=== PATIENT | male | born 1990 | race African-American/Black ===

== ENCOUNTER 2016-04-15 15:40 | Inpatient (IN) | payer SELFPAY ==
[~2016-04-15] VITALS: Ht 190.5 cm; Wt 75.4 kg
[2016-04-15] MEDS: NICOTINE 21 MG/24 HR TRANSDERM SCH (09:00)
[2016-04-15] MEDS ORDERED: DIPHENHYDRAMINE 50 MG/ML VIAL ONE (18:33)
[2016-04-15] MEDS ORDERED: HALOPERIDOL 5 MG/ML VIAL ONE (18:34)
[2016-04-15] MEDS ORDERED: LORAZEPAM 2 MG/ML VIAL ONE (18:34)
[2016-04-15] MEDS ORDERED: HALOPERIDOL 5 MG/ML VIAL IM PRN (20:25)
[2016-04-15] MEDS ORDERED: DIPHENHYDRAMINE 50 MG CAP PO PRN (20:25)
[2016-04-15] MEDS ORDERED: LORAZEPAM 2 MG/ML VIAL IM PRN (20:25)
[2016-04-15] MEDS ORDERED: DIPHENHYDRAMINE 50 MG/ML VIAL IM PRN (20:25)
[2016-04-15] MEDS ORDERED: ACETAMINOPHEN 325 MG TAB PO PRN (20:25)
[2016-04-15] MEDS ORDERED: ALU/MAG/SIM 30 ML UDC PO PRN (20:25)
[2016-04-15] MEDS ORDERED: HALOPERIDOL 5 MG TAB PO PRN (20:25)
[2016-04-15] MEDS ORDERED: LORAZEPAM 2 MG TAB PO PRN (20:25)
[2016-04-15] MEDS ORDERED: MAG HYDROX 30 ML UDC PO PRN (20:25)
[2016-04-15 20:40] VITALS: BP_SYST 85; RESP 16
[2016-04-15] MEDS ORDERED: risperiDONE 2 MG TAB PO SCH (21:00)
[2016-04-15 23:39] VITALS: Ht 190.5 cm; Wt 75.4 kg
[2016-04-16] MEDS: MULTIVITS/MINERALS (THERAGRAN M) TAB PO SCH (09:00)
[2016-04-16] MEDS: risperiDONE 2 MG TAB PO SCH (10:00)
[2016-04-16 10:53] VITALS: BP_SYST 106; RESP 18; TEMP 98.1
[2016-04-16] MEDS: NICOTINE 21 MG/24 HR TRANSDERM SCH (18:23)
[2016-04-16 19:04] VITALS: BP_SYST 122; RESP 18; TEMP 98.3
[2016-04-16] MEDS: TRAZODONE 50 MG TAB PO PRN (22:03)
[2016-04-17 07:36] VITALS: BP_SYST 110; RESP 18; TEMP 97.8
[2016-04-17] MEDS: NICOTINE 21 MG/24 HR TRANSDERM SCH (09:00)
[2016-04-17] MEDS: risperiDONE 2 MG TAB PO SCH (09:31)
[2016-04-17] MEDS: MULTIVITS/MINERALS (THERAGRAN M) TAB PO SCH (09:32)
[2016-04-17 19:46] VITALS: BP_SYST 125; RESP 16; TEMP 97.8
[2016-04-17] MEDS: depakote ER 250 MG TAB PO SCH (20:25)
[2016-04-17] MEDS: TRAZODONE 50 MG TAB PO PRN (22:05)
[2016-04-18 07:40] VITALS: BP_SYST 108; RESP 18
[2016-04-18] MEDS: risperiDONE 2 MG TAB PO SCH (08:33)
[2016-04-18] MEDS: MULTIVITS/MINERALS (THERAGRAN M) TAB PO SCH (08:33)
[2016-04-18] MEDS: NICOTINE 21 MG/24 HR TRANSDERM SCH (08:37)
[2016-04-18] MEDS ORDERED: BENZTROPINE MES 1 MG TAB PO ONE (16:20)
[2016-04-18 21:00] VITALS: BP_SYST 122; RESP 16; TEMP 97.4
[2016-04-18] MEDS ORDERED: risperiDONE 2 MG TAB PO SCH (21:00)
[2016-04-18] MEDS: depakote ER 250 MG TAB PO SCH (21:11)
[2016-04-18] MEDS: TRAZODONE 50 MG TAB PO PRN (21:11)
[2016-04-19 07:39] VITALS: BP_SYST 106; RESP 18; TEMP 97.4
[2016-04-19] MEDS: NICOTINE 21 MG/24 HR TRANSDERM SCH (09:00)
[2016-04-19] MEDS ORDERED: risperiDONE 2 MG TAB PO SCH (09:00)
[2016-04-19] MEDS ORDERED: BENZTROPINE MES 1 MG TAB PO SCH (09:00)
[2016-04-19] MEDS: MULTIVITS/MINERALS (THERAGRAN M) TAB PO SCH (09:48)
[2016-04-19 10:11] VITALS: BP_SYST 106; RESP 18; TEMP 97.4
[2016-04-19 12:25] VITALS: BP_SYST 106; RESP 18; TEMP 97.4
== END 2016-04-19 12:35 | disposition home or self-care (01) | DRG 885 ==
LOC: ER 15:40 → EMR 18:42 → PSY 19:23
PROVIDERS: ADMIT Psychiatry & Neurology Psychiatry; ATTEND Psychiatry & Neurology Psychiatry
DX: F30.2 Manic episode, severe with psychotic symptoms (principal); F12.10 Cannabis abuse, uncomplicated
CPT/HCPCS: 80053; 80307; 80320; 80329; 81003; 84439; 84443; 85025; 85610; 96372